=== PATIENT | female | born 1965 | race Caucasian/White ===

== ENCOUNTER 2019-03-11 19:08 | Emergency (ER) | payer BC, SELFPAY ==
[2019-03-11 19:51] VITALS: BP 117/64; PULSE 74; RESP 18; TEMP 36.8; O2SAT 98; BMI 23.2
[2019-03-11 23:11] VITALS: BP 120/55; PULSE 72; RESP 16; O2SAT 96
--- NOTE | 2019-03-11 23:15 | ED_ITS ---
HPI - Neck Pain/Injury General Chief Complaint: Neck Pain/Injury Stated Complaint: right side of neck/horrible spasms x2 days Time Seen by Provider: 03/11/19 23:10 Source: patient and family Mode of arrival: Wheelchair Limitations: no limitations History of Present Illness HPI Narrative: This is a 53-year-old female comes to the emergency department with complaint of pain on the right side of her neck. Patient states it feels like muscle spasm but she does have some pain into her shoulder. She has some radiating down arm. She does have some tingling in her fingers. She states she has had that on and off in the past. She has had neck surgery in the past about 2 years ago[address] She did drive to [place] 2 days ago, she did sleep in the back of the car when she woke up her neck felt tight but then seemed to improve and then that night at the hotel her neck got very tight and spasm me. Patient has found that he is very helpful for her symptoms. She normally uses a fentanyl patch and takes oxycodone p.o.. This has not been controlling her symptoms. She finds movement makes it worse. She denies any traumas, no falls. She has not had any loss of sensation. She has not had any new weakness. She has a little bit of spasm on the right side but then short he is the right trapezius area neck and shoulder. She is able to lift her shoulder but finds it uncomfortable. Related Data Home Medications Medication Instructions Recorded Confirmed fentanyl 1 patch TOPICAL Q48H #0 03/19/17 pregabalin [Lyrica] 75 mg PO BID #0 03/19/17 Previous Rx's Medication Instructions Recorded cyclobenzaprine 10 mg PO TID PRN #10 tab 03/11/19 meloxicam 7.5 mg PO DAILY PRN #20 tab 03/11/19 Allergies Allergy/AdvReac Type Severity Reaction Status Date / Time erythromycin base Allergy Severe HIVES Verified 03/11/19 19:50 [From ERYTHROCIN] iodine [IODINE] Allergy Intermediate RASH AT Verified 03/11/19 19:50 SURGICAL SITE morphine [MORPHINE] AdvReac Severe VOMITING Verified 03/11/19 19:50 gabapentin [GABAPENTIN] AdvReac Intermediate LIGHTHEADEDNESS, Verified 03/11/19 19:50 FELT LIKE I WAS FLOATING Review of Systems Review of Systems ROS Unobtainable: All systems reviewed & are unremarkable except as noted in HPI and below PFSH Social History Smoking Status: Never smoker Social History Smoking Status: Never smoker Exam Narrative Exam Narrative: GEN: well nourished, well appearing female, alert and oriented x 3, patient appears to be in mild distress. HEENT: Atraumatic, pupils are equal round reactive to light, extraocular movements are intact. HEART: Regular rate and rhythm without murmur, clicks, rubs. Pulses equal bilateral upper extremities LUNGS:Lungs clear to auscultation, no wheezes, rales, crackles, chest moves symmetrically ABD:bowel sounds normal, soft, non-tender, no guarding, rebound, rigidity, no masses noted, no hepatosplenomegaly MSCL: Patient has no bony cervical or thoracic tenderness, she does have tenderness on palpation of the right trapezius and paraspinal muscles. As well as the muscles into the shoulder. Patient does not have any bruising or ecchymosis. No deformity. There is no warmth or erythema. Non-tender, no muscle atrophy, muscles strength 5/5 upper extremities, with equal toll line mechanic bilaterally. Patient has full range of motion of her left upper extremity, she is able to lift her shoulder and arm to 90 degree level but prefers not to go farther. Patient has sensation throughout all 5 fingers, cap refills less than 2 seconds. No pallor or cyanosis. No swelling is noted of the upper extremities. NEURO:CN 2-12 intact, sensation normal Initial Vital Signs Initial Vital Signs: Vital Signs Temperature 98.2 F 03/11/19 19:51 Pulse Rate 74 03/11/19 19:51 Respiratory Rate 18 03/11/19 19:51 Blood Pressure 117/64 03/11/19 19:51 Pulse Oximetry 98 03/11/19 19:51 Course Orders Ordered: Discontinued Medications Cyclobenzaprine HCl (Flexeril 10 Mg Prepack) 1 bottle MISC SEEINSTR ONE Stop: 03/11/19 23:27 Last Admin: 03/11/19 23:47 Dose: 1 bottle Documented by: REMINGTON Ketorolac Tromethamine (Toradol) 30 mg IM NOW ONE Stop: 03/11/19 23:27 Last Admin: 03/11/19 23:47 Dose: 30 mg Documented by: REMINGTON Vital Signs Vital signs: Vital Signs - 8 hr 03/11/19 23:11 03/11/19 23:54 Pulse Rate 72 76 Respiratory Rate 16 16 Blood Pressure 122/66 Blood Pressure [Left Arm] 120/55 L Pulse Oximetry 96 96 MDM - Neck Pain/Injury MDM Narrative Medical decision making narrative: Discussed with patient the fact that heat seems to improve her symptoms significantly and relax the muscles makes me suspect she has more min muscle spasm particularly with her recent history of sleeping an awkward position of the back of a car. Discussed that I do not find that imaging would be helpful. At this time plan for a dose of Toradol, cyclobenzaprine which she has had in the past and had good outcomes. Any short course of meloxicam in addition to her normal medications. Discharge Plan Departure Patient Disposition: Home Clinical Impression: Muscle spasms of neck, Radiculopathy Discharge Date/Time: 03/11/19 23:54 Instructions: DI for Muscle Spasm Activity Restrictions/Additional Instructions: Follow-up with Dr. Monroy if your symptoms are not improving. You may continue home medications as prescribed. Take meloxicam 1 tablet every 12 hours as needed for pain. You may take this with her home medications. Take cyclobenzaprine 1 tablet every 8 hours as needed for muscle spasm. This medication can make you sleepy do not drive, perform hazardous activities, make any major decisions while taking this medication. Return to the emergency department for fevers greater than 100.4 F rapidly worsening symptoms, new weakness, loss of sensation, inability to lift or move your arm, passing out, new chest pain, shortness of breath, persistent vomiting or other new or concerning symptoms. Prescriptions: New meloxicam 7.5 mg tablet 7.5 mg PO DAILY PRN (Reason: pain) Qty: 20 RF: 0 cyclobenzaprine 10 mg tablet 10 mg PO TID PRN (Reason: muscle spasm) Qty: 10 RF: 0 No Action fentanyl 25 MCG/HR patch 72 hour 1 patch Topical Q48H Qty: 0 RF: 0 pregabalin [Lyrica] 75 MG capsule 75 mg PO BID Qty: 0 RF: 0 Referrals: Evans Monroy MD [Physician] - Bjorn Gardner MD [Primary Care Provider] -
[2019-03-11] MEDS: CYCLOBENZAPRINE 10 MG PREPACK 1 BOTTLE MISC (23:47)
[2019-03-11] MEDS: KETOROLAC 60 MG/2 ML VIAL 30 MG IM (23:47)
[2019-03-11 23:54] VITALS: BP 122/66; PULSE 76; RESP 16; O2SAT 96
== END 2019-03-11 23:54 | disposition home or self-care (01) ==
PROVIDERS: Emergency Provider Emergency Medicine; PCP Family Medicine
DX: M62.838 Other muscle spasm (principal); M54.10 Radiculopathy, site unspecified
CPT/HCPCS: 96372; 99282; 99283; J1885

== ENCOUNTER → 2019-10-28 13:16 | Outpatient (CLI) | payer BC, SELFPAY ==
[2019-10-30 05:59] LABS: COVID19 Sendout Not Detected (Not Detect)
== END ==
PROVIDERS: PCP Family Medicine; Visit Provider Family Medicine
DX: Z01.812 Encounter for preprocedural laboratory examination (principal)
CPT/HCPCS: 87635

== ENCOUNTER 2019-10-31 12:47 | Inpatient (IN) | payer BC, SELFPAY ==
[2019-10-30 08:35] VITALS: BMI 24.4
[2019-10-31] VITALS (14 sets, daily range): BP systolic 106–133; BP diastolic 57–99; PULSE 85–113; RESP 10–22; TEMP 36.1–37.1; O2SAT 93–100; BMI 23.3
--- NOTE | 2019-10-31 | DI.RAD.S_ITS ---
PROCEDURE: XR CERVICAL SPINE 2V OR 3V INDICATIONS: C 4-5 DISCECTOMY WITH DISC REPLACEMENT. TECHNIQUE: 2 view(s) of the cervical spine were acquired. [facility], XR CERVICAL SPINE 2 OR 3 VIEWS, 03/14/2019, 10:56. FINDINGS: Spot fluoroscopic intraoperative images demonstrating C4-C5 prosthetic disc. There is expected intraoperative alignment. Interbody cage grafts are noted at C5-C6 and C6-C7 with anterior retaining pins at the C6-C7 level Dictated by: Jesse Abdi M.D. on 10/31/2019 at 16:03 Approved by: Jesse Abdi M.D. on 10/31/2019 at 16:05
--- NOTE | 2019-10-31 07:32 | PM.HP.1 ---
History of Present Illness History of Present Illness Date Patient Seen: 10/31/19 Time Patient Seen: 13:16 Chief complaint: *OPB* [id number] Narrative: 54-year-old female with pain in the neck and radiation to the right side in the shoulder. This has been going on since last fall but greatly progressing recently. She has constant pain in the right side of her neck over the shoulder. If she does anything to move her neck the entire right arm becomes very painful. She has had no relief with osteopathic manipulation. Pain goes from a constant for up to a 10/10. Stabbing burning. The right shoulder is getting progressively weaker. Patient History Medical History Degenerative disc disease, cervical (Acute) History of blood transfusion (Acute) Kidney stones (Acute) RLS (restless legs syndrome) (Acute) Seizure disorder (Acute) Situational depression (Acute) Surgical History History of endometrial ablation (Acute) History of fusion of cervical spine (Acute) History of Carmencita fundoplication (Acute) History of surgical removal of pilonidal cyst (Acute) Hx of bariatric surgery (Acute 2002) Family & Social History Social History: household members spouse Prior Living Arrangements House Safety & Behavioral: Feels Safe in Current Yes Environment Been Physically Hurt or No Threatened By a Person Suicidal Ideation Description None Suicide Plan Description No Plan Tobacco & Substance use: Smoking Status Never smoker alcohol intake never Substance Use Type does not use Meds Home Medications and Allergies Home Medications Medication Instructions Recorded Confirmed Type fentanyl 1 patch TOPICAL Q48H #0 03/19/17 10/31/19 History cyclobenzaprine 10 mg PO TID PRN #10 tab 03/11/19 10/31/19 Rx oxycodone 5 mg PO Q8H PRN 10/30/19 10/31/19 History rizatriptan [Maxalt] 10 mg PO Q2-4H PRN 10/30/19 10/31/19 History Allergies Allergy/AdvReac Type Severity Reaction Status Date / Time erythromycin base Allergy Severe HIVES Verified 10/31/19 13:03 [From ERYTHROCIN] iodine [IODINE] Allergy Intermediate RASH AT Verified 10/31/19 13:03 SURGICAL SITE morphine [MORPHINE] AdvReac Severe VOMITING Verified 10/31/19 13:03 gabapentin [GABAPENTIN] AdvReac Intermediate LIGHTHEADEDNESS, Verified 10/31/19 13:03 FELT LIKE I WAS FLOATING Review of Systems Constitutional Constitutional: Denies chills and Denies fever(s) Respiratory Respiratory: Denies cough Exam Const Orientation: alert and oriented x3 Resp Auscultation: clear to auscultation bilaterally Cardio Rate: regular rate Rhythm: regular rhythm Back/Spine/Pelvis Other: Severely tender was spasms of the right lower cervical paraspinals to the superior traps. 5/5 motor both upper extremities except for 4/5 right deltoid. Decreased sensation over the right shoulder. Objective Imaging Cervical MRI: My impression: From 08/01/2019 shows C3-4 mild central disc bulge mild right foraminal narrowing. C4-5 right-sided disc herniation with mild central stenosis moderate to severe right foraminal stenosis. C5 through 7 ACDF with open canal and foramen. C7-T1 opened Assessment & Plan Assessment & Plan narrative: C4-5 disc herniation above a 2 level fusion. She is having severe ongoing pain with ongoing weakness. Her surgery has been delayed due to coronavirus but his instructions are lifting a feel that the benefits outweigh the risk due to her ongoing weakness this needs to be treated. Risks and benefits of surgery were again discussed. Plan is for a C4-5 anterior diskectomy an artificial disc replacement.
[2019-10-31] MEDS: LACTATED RINGERS 1,000 ML 42 ML IV (13:30)
--- NOTE | 2019-10-31 13:43 | P.OP_ITS ---
Operative Date/Time/Diagnoses Date of procedure: 10/31/19 Time of procedure: 15:28 Pre-op diagnosis: Cervical disc herniation with radiculopathy Post-op diagnosis: same Procedure & Clinicians Procedure: C4-5 anterior cervical diskectomy and artificial disc replacement Same procedure as scheduled: Yes Indications: [age] year old female with intractable pain and weakness from cervical disc herniation. They had failed conservative management and requested operative intervention. Risks and benefits of surgery were discussed and appr opriate consents were obtained. Surgeon: Evans Monroy Mechanic Marine Engine: Karley Santo Anesthesia Type: General Operative Notes Findings: None Closure Type: primary Specimen(s): none sent Prosthetic devices, grafts, tissues, transplants, or devices: Ninfa Mobi-C Estimated Blood Loss (mL): 5 Procedure in detail: Patient was brought to the operating room and intubated on the table. A time-out was performed. Preoperative antibiotics were given. The neck was prepped and draped in the standard sterile fashion. Using a skin fold, we made a 3 cm oblique incision on the left side. We used Bovie to go through the platysma and then did a standard anterolateral blunt dissection down to the precervical fascia. Fascia was nicked and elevated up. A marker was placed and x-ray was taken for localization. We then subperiosteally elevated up the longus colli muscles. Self-retaining retractors were placed. [place] pins were placed under x-ray guidance to be parallel to the endplates. We then brought in the microscope. A scalpel used to perform an annulotomy. We then used a combination of pituitaries and curettes and Kerrison to perform a complete anterior diskectomy at C4-5. We took down the PLL and used Kerrison to remove any posterior disc material and osteophytes. At the end we could from the nerve hook cephalad caudally and out the foramen and everything was opened. We distracted open with the parallel early head start director. We then used the horseshoes for sizing. We then used the trials. We then inserted a 15 x 13 x 5 mm size Mobi-C artificial disc replacement under fluoroscopic guidance for positioning. This did distractor somewhat but it is the smallest disc replacement available. The traction was released and x-ray was checked again. The self-retaining retractors and [place] pins were removed and final x-rays taken. The wound was irrigated. There was no bleeding. The carotid was beating nicely. The platysma was closed. The superficial was closed. The skin was closed. A sterile dressing was placed. They were then extubated and brought to recovery room with no complications. Complications: none Post-operative Condition: stable Disposition: PACU Plan for aftercare: Overnight admission. Plan to discharge in the morning.
[2019-10-31] MEDS: CEFAZOLIN 2 GM/100 ML FROZ.PIGGY IV (14:04)
--- NOTE | 2019-10-31 14:30 | SUR.OPER ---
Supine, head on gel donut. Arms padded with gel pads, tucked at sides, towel roll under shoulders. Safety belt at thigh. Legs uncrossed.
[2019-10-31] MEDS: SODIUM CHLORIDE 0.9% 1,000 ML, GENTAMICIN 80 MG IRR (14:45)
[2019-10-31] MEDS: THROMBIN (RECOMBINANT) 5,000 UNIT VIAL 5000 UNIT TOP (14:46)
[2019-10-31] MEDS: BUPIVACAINE 0.25% W/ EPI 30 ML VIAL INJ (14:47)
[2019-10-31] MEDS: fentaNYL 100 MCG/2 ML INJ IV ×4 (15:36→16:09)
[2019-10-31] MEDS: LORazepam 2 MG/ML INJ 0.25 MG IV (15:41)
[2019-10-31] MEDS: OXYCODONE/ACETAMINOPHEN 5/325 TABLET 1 TAB PO ×2 (15:48→16:03)
[2019-10-31] MEDS: fentaNYL 25 MCG/PATCH TOP (16:07)
[2019-10-31] MEDS: HYDROMORPHONE 0.5 MG INJ IV ×2 (17:29→19:54)
[2019-10-31] MEDS: LACTATED RINGERS 1,000 ML 125 ML IV (17:30)
[2019-10-31] MEDS: CYCLOBENZAPRINE 10 MG TABLET PO (18:25)
[2019-10-31] MEDS: OXYCODONE IR 5 MG TABLET 10 MG PO (18:25)
[2019-10-31] MEDS: SENNOSIDES 8.6 MG TABLET 17.2 MG PO (20:59)
[2019-10-31] MEDS: diazePAM 5 MG TABLET PO (20:59)
[2019-10-31] MEDS: DOCUSATE 100 MG CAPSULE PO (21:00)
[2019-10-31] MEDS: OXYCODONE IR 5 MG TABLET 15 MG PO (21:30)
[2019-10-31] MEDS: HYDROMORPHONE 2 MG INJ 1 MG IV ×2 (21:46→23:31)
[2019-10-31] MEDS: CEFAZOLIN 1 GM/50 ML FROZ.PIGGY IV (21:55)
--- NOTE | 2019-10-31 23:16 | PC.NURSE ---
Evening Shift/Admit Note- Patient arrived to room via bed from PACU. Patient alert and oriented and able to make needs known to staff. Admiision done. Oriented patient to bed and bed controls, room, bathroom, lights, phone, menu, and call tolliver/TV remote. Dressing to neck C/D/I and soft collar on. Pain medications not controling pain. Called on-call ortho surgeon Dr. Chris and recieved orders to increase oxycodone to 15mg and break through IV dilaudid to 1mg PRN. Safety measures in place. Patient agrees to call for assistance. Call tolliver and phone within reach. will continue to monitor.
[2019-11-01] VITALS: BP 121/77; PULSE 114; RESP 16; TEMP 37.2; O2SAT 97
[2019-11-01] MEDS: OXYCODONE IR 5 MG TABLET 15 MG PO ×5 (00:08→12:03)
[2019-11-01] MEDS: LACTATED RINGERS 1,000 ML 125 ML IV (01:56)
[2019-11-01] MEDS: diazePAM 5 MG TABLET PO (03:01)
[2019-11-01] MEDS: CEFAZOLIN 1 GM/50 ML FROZ.PIGGY IV (05:50)
[2019-11-01] MEDS: CYCLOBENZAPRINE 10 MG TABLET PO (05:53)
[2019-11-01 05:57] VITALS: BP 120/74; PULSE 90; RESP 16; TEMP 36.6; O2SAT 94
--- NOTE | 2019-11-01 07:49 | PM.PNPO.1 ---
Subjective Subjective Date Patient Seen: 11/01/19 Time Patient Seen: 07:49 Interval history: Rough night with pain control mostly at the base of the spine and superior trapezius. No more pain and numbness over the right shoulder and feels much stronger. No more aching going down the arm. Exam Vital Signs (past 8 hours): - 11/01/19 00:00 11/01/19 05:57 Temperature 98.9 F 97.8 F Pulse Rate 114 H 90 Respiratory Rate 16 16 Blood Pressure 121/77 120/74 Pulse Oximetry 97 94 Oxygen Delivery Method Room Air Oxygen Flow Rate 0 Const Orientation: alert and oriented x3 Back/Spine/Pelvis Other: CDI. 5/5 motor both upper extremities Assessment & Plan Post-op Postoperative Procedures: Procedures Operation Date: 10/31/19 14:15 Actual Procedures Side Surgeon p C45 Anterior discectomy and artificial disc replacement Evans Monroy MD neurologically, she is much better after surgery. However, she certainly has some issues with pain control. She has been on chronic narcotics and has a high tolerance. She is also very small boned explained that even though we put the smallest implant possible into her neck, it still over distracted her which can cause increased pain in the neck initially. Plan to get her up with therapy this morning and discharged home. Her primary care doctor gave her a prescription for pain medication but she is most likely going to need more in the short term and I will also send her home with this as well as the Valium for the spasms. Quality VTE Deep Vein Thrombosis/Pulmonary Embolism Present on Admission: No
[2019-11-01] MEDS: NAPROXEN 250 MG TABLET 500 MG PO (08:12)
[2019-11-01] MEDS: DOCUSATE 100 MG CAPSULE PO (08:12)
[2019-11-01 08:37] VITALS: BP 109/67; PULSE 88; RESP 18; TEMP 36.9; O2SAT 97
--- NOTE | 2019-11-01 09:41 | OT.IP.EVAL ---
Current Diagnoses Other cervical disc displacement, unspecified cervical region (10/31/19) Strain of muscle, fascia and tendon at neck level, subsequent encounter (10/31/19) Arthrodesis status (10/31/19) Surgery Performed Operation Date: 10/31/19 14:15 Actual Procedures p C45 Anterior discectomy and artificial disc replacement - Evans Monroy MD Past Medical History (Last Updated 10/31/19 @ 13:18 by Kayla De Dios RN) Degenerative disc disease, cervical (Acute) History of blood transfusion (Acute) Kidney stones (Acute) RLS (restless legs syndrome) (Acute) Seizure disorder (Acute) Situational depression (Acute) Surgical History (Last Reviewed 10/31/19 @ 07:33 by Evans Monroy MD) History of endometrial ablation (Acute) History of fusion of cervical spine (Acute) History of Carmencita fundoplication (Acute) History of surgical removal of pilonidal cyst (Acute) Hx of bariatric surgery (Acute 2002) Occupational Therapy Inpatient Evaluation/Re-Eval M1 PT/OT-IP Prior Functional Status Start: 11/01/19 10:16 Freq: NEEDED Status: Active Protocol: Document 11/01/19 09:11 [facility] (Rec: 11/01/19 10:41 [facility] [id number]) Medical Review Prior Functional Status Medical History Reviewed Yes Diet/Fluid Consistency Regular,Thin Liquids Communication Independent Mobility and Gait Pt did not use any devices at home. Activities of Daily Living and IADL's Due to not able to use her RUE overhead needing assist to doff jackets and lift shirts overhead. Otherwise increased time for ADl's. Pt's family assisted with IAD needs. Social History Household Members spouse,children Living Arrangements House Number of Floors (Floors) Two Floors Number of Stairs To Enter/Railing? 2 steps to enter the house and 14 steps with left rail up and wall on the right side in order to get to the bedroom. Pt states thinking about sleeping on the main level in the recliner and that her daughter can stay on the sofa on the main level to assist as needed. Home Environment Standard Height Toilet,Walk in Shower Additional Social History Comment Pt states has a high bed and at times uses the step next to the bed to help push to get up and down from the bed. M2 OT-IP Current Condition Start: 11/01/19 10:16 Freq: Status: Active Protocol: Document 11/01/19 09:11 [facility] (Rec: 11/01/19 10:41 [facility] [id number]) Occupational Therapy Current Condition Current Condition Evaluation Date 11/01/19 Treatment Diagnosis Cervical herniation with radiculopathy, S/P C4-5 ant cerv diskectomy Diagnosis Onset Date 10/31/19 Post Operative Precautions Cervical Spine Precautions Soft Collar for Comfort,No Heavy Lifting,Log Roll M3 OT- IP Subjective and Pain Start: 11/01/19 10:16 Freq: Status: Active Protocol: Document 11/01/19 09:11 [facility] (Rec: 11/01/19 10:41 [facility] [id number]) OT- Subjective Occupational Therapy Visit Type Type Initial Evaluation Visit Start Time 09:11 Visit Stop Time 09:41 Total Visit Minutes 30 Occupational Therapy Visit Comments Patient Comments Pt states had a hard time eating her breakfast of eggs, lang and orange and that SEWING TECHNIQUES DEMONSTRATOR to come and screen pt later. Pt agreeable to get up for OT eval. Patient/Caregiver Goals TO go home and be able to take care of herself. OT Pain Assessment Pain When Pain Assessed At Rest Pain Present Pain Present Pain Reported Location right posterior neck Intensity 6 Scale Used Numeric (1 - 10) M4 OT- IP ADL's Start: 11/01/19 10:16 Freq: Status: Active Protocol: Document 11/01/19 09:11 [facility] (Rec: 11/01/19 10:41 [facility] [id number]) OT GIL-Qcri-Ghibstl Comments OT Self-Feeding Comments Educated pt on swallowing suggestions after cervical SX, ie eat softer food, have pills in carrier, sit upright , eat colder food to help with the inflammation, and use of straw if needed. OT ADL-Grooming General Evaluation Grooming Ability Standby Assistance Areas Needing Assistance Retrieving/Set-up of Grooming Items Comments OT Grooming Comments Pt able to linseed oil temperer front of the sink with close SBA. Cues to spit into a cup for brushing her teeth. OT ADL-Oral Care General Eval Oral Care Ability Independent OT ADL-Dressing General Eval Lower Body Dressing Ability Standby Assistance Comments OT Dressing Comments Pt able to sit at ths edge of the bed to efrem/doff her socks. Pt able to independently efrem/doff soft collar. OT ADL-Toileting Comments OT Toileting Comments Pt not having to use the toilet. Educated to stand for hygiene needs. OT ADL-Bathing Comments OT Bathing Comments Pt not wanting to shower at this time. Educated may be beneficial to have a shower chair when showering and have her daughter to assist. M5 OT- IP IADL's Start: 11/01/19 10:16 Freq: Status: Active Protocol: Document 11/01/19 09:11 [facility] (Rec: 11/01/19 10:41 [facility] [id number]) OT-Instrumental Activities of Daily Living Home Safety Awareness Home Safety Comments Pt a bit groggy and would benefit from her daughter to assist with medication, IADL's , and assist for ADL's as needed. M6 OT- IP Functional Cognition Start: 11/01/19 10:16 Freq: Status: Active Protocol: Document 11/01/19 09:11 [facility] (Rec: 11/01/19 10:41 [facility] [id number]) Cognitive Factors Limiting Selfcare Function Cognitive Ability Level of Alertness Alert Patient Orientation Name,Place,Situation Attention Span Ability Capable of Focused Attention, Capable of Sustained Attention Ability to Follow Commands Able to Follow One Step Commands Memory Description Short Term Impaired Safety Awareness Underestimates Need for Assistance Problem Solving Ability Needs Assist to Identify Solutions Cognitive Comments Cognitive Assessment Comments Pt needing cues for log rolling and to be careful to use her arms versus her body/ head to come up from the bed. OT- Vision and Hearing OT- Hearing Assessment OT- Hearing Assessment WFL OT- Vision Assessment Visual Acuity Glasses For Reading M7 OT- IP Mobility and Balance Start: 11/01/19 10:16 Freq: Status: Active Protocol: Document 11/01/19 09:11 [facility] (Rec: 11/01/19 10:41 [facility] [id number]) OT- Bed Mobility Assessment Supine to Sit Supine to Sit Assist Standby Assistance,Bedrails Sit to Supine Sit to Supine Assist Standby Assistance OT-Transfer Assessment Sit to and From Stand Sit to and from Stand Standby Assistance Transfers Transfer Ability Standby Assistance,Contact Guard Assistance Technique Transfer Destination Bed Transfer Technique Stand Step Pivot Devices Transfer Assistive Devices Gait Belt Comments Mobility Comments Pt a little unsteady on her feet and at times needing CGA for balance or use of counter to help steady herself otherwise close SBA. OT- Balance Assessment Sitting Balance and Reactions Static Sitting Balance Ability Normal Dynamic Sitting Balance Ability Normal Standing Balance and Reactions Static Standing Balance Ability Good Dynamic Standing Balance Ability Fair M8 OT- IP Objective Assessments Start: 11/01/19 10:16 Freq: Status: Active Protocol: Document 11/01/19 09:11 [facility] (Rec: 11/01/19 10:41 [facility] [id number]) OT Gross Range of Motion Upper Extremity Range of Motion Assessment Within Functional Limits OT Strength Upper Extremity Strength Assessment Bilaterally Impaired M9 OT- IP Assessment and Plan Start: 11/01/19 10:16 Freq: Status: Active Protocol: Document 11/01/19 09:11 [facility] (Rec: 11/01/19 10:41 [facility] [id number]) OT Summary Assessment and Plan Potential Rehabilitation Potential Excellent Analytic Complexity at Evaluation Low Summary OT Impairments Pain,Balance,Functional Cognition,Functional Mobility, Dressing,Toileting,Bathing, Toilet Transfers,Shower Transfers,Activity Tolerance Progress Towards Goals Progressing Toward Goals Assessment Summary Pt low complexity and main barrier are pain and decreased dynamic balance and will need assist for functional mobility and ADl needs. Pt also voice difficulty to swallow and educated pt on swallowing suggestions and safety, SEWING TECHNIQUES DEMONSTRATOR to come and screen pt later. Goals Self-Feeding Goal Independent Grooming Goal Independent Dressing Goal Independent Toileting Goal Independent Bathing Goal Standby Assistance Toilet Transfer Goal Independent Shower Transfer Goal Standby Assistance Patient/Caregiver Education Goal Demonstrate Post-Op Precautions,Caregiver Independent Assisting Patient Days to Meet Goals 2 Frequency of Treatment Frequency Of Treatment Once a Day Treatment Plan OT Treatment Plan ADL Training,Functional Cognition Training,Functional Mobility,Patient/Family Education,Discharge Planning Discharge Recommendations OT Discharge Recommendations Home with Assistance Transportation Needs at Discharge Private Vehicle
--- NOTE | 2019-11-01 10:06 | PT.IIE ---
Current Diagnoses Other cervical disc displacement, unspecified cervical region (10/31/19) Strain of muscle, fascia and tendon at neck level, subsequent encounter (10/31/19) Arthrodesis status (10/31/19) Surgery Performed Operation Date: 10/31/19 14:15 Actual Procedures p C45 Anterior discectomy and artificial disc replacement - Evans Monroy MD Surgical History (Last Reviewed 10/31/19 @ 07:33 by Evans Monroy MD) History of endometrial ablation (Acute) History of fusion of cervical spine (Acute) History of Carmencita fundoplication (Acute) History of surgical removal of pilonidal cyst (Acute) Hx of bariatric surgery (Acute 2002) Medical History (Last Updated 10/31/19 @ 13:18 by Kayla De Dios RN) Degenerative disc disease, cervical (Acute) History of blood transfusion (Acute) Kidney stones (Acute) RLS (restless legs syndrome) (Acute) Seizure disorder (Acute) Situational depression (Acute) Physical Therapy Inpatient Evaluation/Re-Eval M1 PT/OT-IP Prior Functional Status Start: 11/01/19 10:16 Freq: NEEDED Status: Discharge Protocol: Document 11/01/19 09:11 [facility] (Rec: 11/01/19 10:41 [facility] [id number]) Medical Review Prior Functional Status Medical History Reviewed Yes Diet/Fluid Consistency Regular,Thin Liquids Communication Indpendent Mobility and Gait Pt did not use any devices at home. Activities of Daily Living and IADL's Due to not able to use her RUE overhead needing assist to doff jackets and lift shirts overhead. Otherwise increased time for ADl's. Pt's family assisted with IAD needs. Social History Household Members spouse,children Living Arrangements House Number of Floors (Floors) Two Floors Number of Stairs To Enter/Railing? 2 steps to enter the house and 14 steps with left rail up and wall on the right side in order to get to the bedroom. Pt states thinking about sleepiing on the main level in the recliner and that her daughter can stay on the sofa to assist as needed. Home Environment Standard Height Toilet,Walk in Shower Additional Social History Comment Pt states has a high bed and at [facility] uses the step next to the bed to help push to get up and down from the bed. M1 PT/OT-IP Prior Functional Status Start: 11/01/19 14:58 Freq: NEEDED Status: Active Protocol: Document 11/01/19 10:06 [facility] (Rec: 11/01/19 15:23 [id number]) Medical Review Prior Functional Status Diet/Fluid Consistency Regular,Thin Liquids Communication able to make needs known Mobility and Gait pt stated that she is independent with all mobilities and ambulation without AD Activities of Daily Living and IADL's per OT's note: Due to not able to use her RUE overhead needing assist to doff jackets and lift shirts overhead. Otherwise increased time for ADl's. Pt's family assisted with IAD needs. Social History Household Members spouse,children Living Arrangements House Number of Floors (Floors) Two Floors Number of Stairs To Enter/Railing? 2 steps to enter the house and 14 steps with left rail up and wall on the right side in order to get to the bedroom. Pt states thinking about sleepiing on the main level in the recliner and that her daughter can stay on the sofa to assist as needed. Home Environment Standard Height Toilet,Walk in Shower Home Equipment Hand Held Shower Additional Social History Comment stated that she has a walking stick stated that her daughter can also assist her M2 PT-IP Current Condition Start: 11/01/19 14:58 Freq: NEEDED Status: Active Protocol: Document 11/01/19 10:06 [facility] (Rec: 11/01/19 15:23 [id number]) Physical Therapy Current Condition Current Condition Evaluation Date 11/01/19 Treatment Diagnosis s/p C4-5 ACDF; difficulty in walking Onset Date 10/31/19 Precautions Cervical Spine Precautions Soft Collar for Comfort,No Heavy Lifting,Log Roll M3 PT-IP Subjective Start: 11/01/19 14:58 Freq: NEEDED Status: Active Protocol: Document 11/01/19 10:06 [facility] (Rec: 11/01/19 15:23 [id number]) Subjective Physical Therapy Visit Type Type Initial Evaluation Visit Start Time 10:06 Visit Stop Time 10:34 Total Visit Minutes 28 Number of DAIRY EQUIPMENT REPAIRER Visits 0 Physical Therapy Visit Comments Patient Comments pt is agreeable to do PT Therapy Pain Assessment Pain When Pain Assessed At Rest Pain Present Pain Present Pain Reported Location right posterior neck Intensity 7 Scale Used Numeric (1 - 10) Pain Management Techniques Apply Cold,Re-positioning, Timing of Activity with Medications M4 PT-IP Mobility and Gait Start: 11/01/19 14:58 Freq: NEEDED Status: Active Protocol: Document 11/01/19 10:06 [facility] (Rec: 11/01/19 15:23 [facility] [id number]) PT-Bed Mobility Assessment Rolling Type of Rolling Log Rolling Level of Assist Standby Assistance Supine to Sit Supine to Sit Standby Assistance Sit to Supine Sit to Supine Standby Assistance PT-Transfer Assessment Sit to and From Stand Sit to and from Stand Standby Assistance,1 Person Assistance,Use of Upper Extremities Equipment Transfer Assistive Device None,Gait Belt Orthotic/Prosthetic Devices or Brace: Yes Transfers Transfer Destination Chair Transfer Technique Stand Step Pivot Transfer Ability Level of Assist Standby Assistance,Contact Guard Assistance,1 Person Assistance,Use of Upper Extremities Comments Mobility Comments pt completed bed mobility log roll supine <>sit SBA. reviewed cervical precautions with pt. pt was able to efrem collar by herself. pt completed sit to stand SBA. ambulated ~ 150 ft without AD CGA and tends to hold on to the wall for support. provided SPC for pt and stated that she has a walking stick at home that she can use. pt ambulated towards the stairs ~ 150 ft SBA. pt stated that she feels steadier with SPC. pt completed stairs SBA. ambulated back to her room. requested to stay in bed. informed pt to call her daughter to bring her walking stick and pt agreed. call light and table placed within reach. Gait Assessment Gait Gait Assistance Required: Standby Assistance,Contact Guard Assist Distance (Feet) 150 Able to Maintain Weight Bearing Status Yes During Gait Assistive Devices Assistive Device None,Gait Belt,Straight Cane Orthotic/Prosthetic Devices or Brace: Yes Gait Deviations General Gait Pattern Antalgic,Decreased Stride Length,Decreased Feet Clearance Factors Limiting Gait Function Factors Limiting Gait Function Decreased Activity Tolerance, Decreased Strength,Limited Range of Motion,Pain,Poor Balance Comments Gait Comments pls refer to mobility section for details. recommending pt to use her walking stick at this time for safety and stability and pt agreed. Stair Climbing Assessment Evaluation Level of Assist On Stairs Standby Assistance Devices Stair Climbing Assistive Devices Straight Cane,Left Railing Technique/Endurance Stair Climbing Direction Ascend and Descend Stair Climbing Technique Step to Step Number of Steps Climbed 3 Query Text: Stair Climbing Set # Repetitions (reps) 2 Comments Stair Climbing Comments completed steps using L rail and SPC and completed SBA; completed steps using just L rail and pt holding with B hands. pt stated that she feels more stable holding on L rail with B hands. educated pt that daughter has to assist and agreed. PT-Balance Assessment Sitting Balance and Reactions Static Sitting Balance Ability Good Dynamic Sitting Balance Ability Good Standing Balance and Reactions Static Standing Balance Ability Fair Dynamic Standing Balance Ability Fair Device Used without AD M5 PT-IP Objective Assessments Start: 11/01/19 14:58 Freq: NEEDED Status: Active Protocol: Document 11/01/19 10:06 [facility] (Rec: 11/01/19 15:23 [facility] [id number]) Orientation Orientation/Cognition Level of Alertness Alert Orientation Name,Place,Situation Language Function Ability No Deficits Noted Safety Awareness Decreased Safety Awareness Memory Description No Deficits Noted Gross Range of Motion Lower Extremity ROM Assessment Within Functional Limits Strength Lower Extremity Strength Assessment Within Functional Limits Sensation Assessment Sensation Gross Sensation WNL Muscle Tone Muscle Tone WNL Yes M6 PT-IP Treatment Start: 11/01/19 14:58 Freq: NEEDED Status: Active Protocol: Document 11/01/19 10:06 [facility] (Rec: 11/01/19 15:23 [facility] [id number]) Physical Therapy Treatment Education Education Provided Precautions,Safety M7 PT-IP Assessment and Plan Start: 11/01/19 14:58 Freq: NEEDED Status: Active Protocol: Document 11/01/19 10:06 [facility] (Rec: 11/01/19 15:23 [facility] [id number]) PT Summary Assessment and Plan Potential Rehabilitation Potential Good Status of Condition at Evaluation Stable Summary Impairments Pain,ROM,Strength,Balance,Bed Mobility,Transfers,Gait, Activity Tolerance Progress Towards Goals Safe For Discharge Assessment Summary pt requiring SBA with mobility and ambulation using SPC. recommending pt to use her walking stick for stability and safety and pt agreed. pt plans to go home and family to assist her. Goals Bed Mobility Goal Independent Transfer Goal Independent Gait Goal Independent Gait Distance 200 Other Goals up/donw 2 steps L rail mod I Days to Meet Goals 3 Frequency of Treatment Frequency Of Treatment Once a Day Treatment Plan Physical Therapy Treatment Plan Bed Mobility Training,Transfer Training,Gait Training, Therapeutic Exercise,Balance Retraining,Post Op Education, Discharge Planning,Hot or Cold Pack,Neuromuscular Re-ed, Coordination Retraining Recommendations To Nursing Amount of Assist Needed Standby Assistance Discharge Recommendations PT Discharge Recommendations Home with Assistance Transportation Needs at Discharge Private Vehicle
--- NOTE | 2019-11-01 12:22 | PC.NURSE ---
Patient discharged to home with her daughter. States she has follow up scheduled already. IV removed intact. Dressing remains CDI to anterior neck, with soft collar in place. Escorted out via wheelchair with all belongings by DIRECTOR BUILDING. Patient innstructed to call Dr. Monroy's office with questions or concerns.
--- NOTE | 2019-11-01 15:52 | CM.DPC ---
Patient is a 54 year old female who was admitted on 10/31/19 for Cervical neck surgery. Pt has [facility] for insurance and her PCP is Dr. Bjorn Gardner. EMR was reviewed. Per Ortho MD, pt tolerated surgery well and safe for d/c home later today after further PT/OT. Per PT/OT, recommending safe d/c home with spouse assist. No bedside assessment completed due to triage needs and no identified barriers to discharge. Plan: Patient to d/c home today via spouse POV and assist and no SW needs at this time. ANA LILIA Man
== END 2019-11-01 12:28 | disposition home or self-care (01) | DRG 518 ==
LOC: OR 12:51 → AC 11-01 09:55
PROVIDERS: Admitting Provider Orthopaedic Surgery; PCP Family Medicine; Referring Provider Orthopaedic Surgery; Visit Provider Orthopaedic Surgery
PROC: 0RR30JZ Replacement of Cervical Vertebral Disc with Synthetic Substitute, Open Approach (ICD-10-PCS; principal; 2019-10-31 14:15)
DX: M50.121 Cervical disc disorder at C4-C5 level with radiculopathy (principal); S16.1XXD Strain of muscle, fascia and tendon at neck level, subsequent encounter; X58.XXXD Exposure to other specified factors, subsequent encounter; Z98.1 Arthrodesis status; Z79.891 Long term (current) use of opiate analgesic
CPT/HCPCS: 72040; 76000; 97161; 97165; 97535; C1776; J0690; J1100; J1170; J1885; J2060; J2250; J2405; J2704; J3010